=== PATIENT | male | born 1960 | race Caucasian/White ===

== ENCOUNTER 2024-06-01 06:54 | Emergency (ER) | payer OTHER, BC, SELFPAY ==
[2024-06-01 07:07] VITALS: BP 134/92; PULSE 67; RESP 18; TEMP 36.2; O2SAT 96; BMI 29.1
[2024-06-01] MEDS: TETANUS-DIPHTHERIA TOXOIDS/PF 0.5 ML SYRINGE IM (07:53)
--- NOTE | 2024-06-01 07:54 | ED.GENADULT ---
HPI - General Adult General Chief complaint: Laceration/Wound Stated complaint: LT arm laceration at work Time Seen by Provider: 06/01/24 07:00 Source: patient Mode of arrival: ambulatory Limitations: no limitations History of Present Illness HPI narrative: 63-year-old male presents to the emergency department with a laceration to his left forearm. This happened when he accidentally cut it with his referring knife while working. Active bleeding. No difficulty moving arm or hand. No loss of sensation. Does not use any anticoagulants. No immunosuppressants. No other injuries. Unsure of last tetanus shot. He states his past medical history is benign, no major long-term health problems. No long-term medications, no allergies. ROS is negative for other musculoskeletal, general, neurological or skin changes. Related Data Home Medications ?Medication ?Instructions ?Recorded ?Confirmed No Known Home Medications 06/01/24 06/01/24 Allergies Allergy/AdvReac Type Severity Reaction Status Date / Time No Known Drug Allergies Allergy Verified 06/01/24 07:13 PFSH PFS Social History Smoking Status: Never smoker Do you use any of these nicotine containing products: None How often do you have a drink containing alcohol: never How often do you have six or more drinks on one occasion: Never AUDIT-C Alcohol total score: 0 Non-prescribed substance use: denies use Exam Const: Vital Signs, click to edit/add: Vital Signs - 24 hr 06/01/24 07:07 Temperature 97.2 F L Pulse Rate [Right Pulse Oximeter] 67 Respiratory Rate 18 Blood Pressure [Ri ght Upper Arm] 134/92 H Pulse Oximetry 96 Oxygen Delivery Me thod Room Air Documenting provider has reviewed patient's vital signs: yes Common normals: no apparent distress General appearance: cooperative, comfortable and well kempt HENMT: Common normals: normocephalic and head/scalp atraumatic Head and scalp: normocephalic and atraumatic Eye: Common normals: conjunctivae normal General eye: normal appearance of both eyes Conjunctiva: conjunctiva(e) normal Resp: Common normals: normal respiratory effort Effort & inspection: able to speak in complete sentences Cardio: Other: Regular peripheral pulses left radial. Normal capillary refill in all fingers. Extremity: Other: Left arm shows 4.5 cm diagonal laceration, full dermal depth with active venous bleeding to mid left ventral forearm. Normal appearance of elbow, wrist and hand. Hand, wrist and elbow move normally with no deficits. 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 Psych: Appearance: well kempt Attitude: engaged Mood and affect: euthymic mood Course Course ED Course: Clean laceration to left forearm, slight venous bleeding, no signs of arterial or neurological injury. Attempted to place Steri-Strips but I just was not happy with the bleeding control. Procedure: Laceration repair. Area was cleansed again with warm soapy tap water, no evidence of foreign body seen. Injected with 3 mL of 1% lidocaine with epinephrine with good anesthesia and blanching. Three simple interrupted 4-0 Monocryl sutures were placed with good cosmetic closure and hemostasis. Cover with antibiotic ointment and Band-Aid. Instructed on wound care. Tetanus shot given. Cleared to return to work. Change dressing once daily. Two days of supplies given. Alarm symptoms reviewed that would warrant ED presentation. He verbalized understanding and agreement. Vital Signs Vital signs: Initial Vital Signs Temperature 97.2 F L 06/01/24 07:07 Temperature Source Temporal Artery Scan 06/01/24 07:07 Pulse Rate 67 06/01/24 07:07 Pulse Rhythm Regular 06/01/24 07:07 Respiratory Rate 18 06/01/24 07:07 Blood Pressure 134/92 H 06/01/24 07:07 Blood Pressure Mean 106 H 06/01/24 07:07 Pulse Oximetry 96 06/01/24 07:07 Oxygen Delivery Method Room Air 06/01/24 07:07 Vital Signs Temperature 97.2 F L 06/01/24 07:07 Pulse Rate 67 06/01/24 07:07 Respiratory Rate 18 06/01/24 07:07 Blood Pressure 134/92 H 06/01/24 07:07 Pulse Oximetry 96 06/01/24 07:07 Oxygen Delivery Method Room Air 06/01/24 07:07 Temperature 97.2 F L 06/01/24 07:07 Pulse Rate 67 06/01/24 07:07 Respiratory Rate 18 06/01/24 07:07 Blood Pressure 134/92 H 06/01/24 07:07 Pulse Oximetry 96 06/01/24 07:07 Oxygen Delivery Method Room Air 06/01/24 07:07 Discharge Plan Discharge Clinical Impression: Laceration Patient Disposition: Home, Self-Care Condition: Improved Instructions: Laceration (DC) Additional Instructions: Bryant hemos comentado, se colocaron 3 puntos que habr? que retirar en unos 7-10 d?as. Puede hacer priyank otoniel para que le slick esto en la cl?raheem o eliminarlos usted mismo jayesh discutimos. L?vese priyank vez al d?a con agua y jab?n, luego aplique un vendaje limpio y un lucille?ento antibi?kelby. Si hay signos de infecci?n, aumento del drenaje o sangrado yamile, regrese al departamento de emergencias. Un poco de sangrado leve y supuraci?n no son motivo de preocupaci?n. Est? autorizado m?dicamente para regresar al trabajo. As we discussed, 3 stitches were placed that will need to be removed in about 7-10 days. You can make an appointment to have this done in clinic or remove them your self as we discussed. Wash once daily with soap and water, then apply a clean bandage and antibiotic ointment. If any signs of infection, increased drainage or severe bleeding, please return to the emergency department. Some slight bleeding and oozing is not of concern. You are medically cleared to return to work. Activity Level: No Restrictions Discharge Diet: Regular Prescriptions: No Action No Known Home Medications Stand Alone Forms: Impulcityth Info Instructions
[2024-06-01] MEDS: LIDOCAINE 1%-EPI 1:100,000 20 ML INFILTRATI (07:59)
== END 2024-06-01 08:00 | disposition home or self-care (01) ==
PROVIDERS: Emergency Provider Family Medicine
DX: S51.812A Laceration without foreign body of left forearm, initial encounter (principal); W26.0XXA Contact with knife, initial encounter; Y99.0 Civilian activity done for income or pay; Z23 Encounter for immunization
CPT/HCPCS: 12002; 90471; 90714; 99282; 99283